=== PATIENT | female | born 1960 | race Caucasian/White ===

== ENCOUNTER → 2020-03-09 11:37 | Outpatient (CLI) | payer OTHER, MEDICAID, SELFPAY ==
--- NOTE | ~2020-03-09 | DEXA_ITS ---
Bone Density Report Name: Sheila Reinoso Age: 59 Sex: Female Ethnicity: White Date of : 1960 Indication: postmenopausal; screening for osteoporosis; height loss; Referring Provider: SEKOU, STERLING Neumann Study: Bone densitometry was performed. Exam Date: March 09, 2020 Accession number: [id number] Bone Density: Region BMD T-score Z-score Classification AP Spine (L1-L4) 1.176 1.2 2.6 Normal Femoral Neck (Left) 0.820 -0.3 1.0 Normal Total Hip (Left) 0.932 -0.1 0.8 Normal Femoral Neck (Right) 0.849 0.0 1.3 Normal Total Hip (Right) 0.937 0.0 0.9 Normal Total Hip Mean 0.935 -0.1 0.9 Normal World Health Organization criteria for BMD impression classify patients as: Normal (T-score at or above -1.0), Osteopenia (T-score between -1.0 and -2.5), or Osteoporosis (T-score at or below -2.5). 10-year Fracture Risk: FRAX not reported because: All T-scores for Spine Total, Hip Total, Femoral Neck at or above -1.0 Clinical Information Provided by Patient: Patient maximum height was 64 Menopause Age: 37 No regular weight bearing exercise Drinks caffeinated beverages Onset of menses at age 14 Number of children 2 Impression: The patient has normal bone mass. Discussion: BONE DENSITY IS ABOVE THE MINIMUM DESIRABLE LEVEL AT ALL SKELETAL SITES TESTED. This patient?s bone mineral density is above the minimum desirable level (T-score -1.0 or better) at all sites measured. The patient should follow a healthful lifestyle (good nutrition with adequate calcium and vitamin D, and appropriate weight-bearing exercise). Follow-Up: Consider repeating this study in 5 years or sooner if there is some new clinical indication. Reported by: JOSHUA on 03/09/2020 12:07:00 PM. Reviewed, dictated and finalized at location [facility]
== END ==
PROVIDERS: PCP Internal Medicine; Visit Provider Internal Medicine
DX: N95.9 Unspecified menopausal and perimenopausal disorder (principal); Z78.0 Asymptomatic menopausal state
CPT/HCPCS: 77080

== ENCOUNTER 2020-09-21 15:04 | Outpatient (CLI) | payer OTHER, MEDICAID, SELFPAY ==
--- NOTE | ~2020-09-21 | XR_ITS ---
XR chest 2V DATE: 09/21/2020 15:35 INDICATION: Covid pneumonia TECHNIQUE: PA and lateral views COMPARISON: None FINDINGS: Normal heart size. No hilar or mediastinal enlargement. There is patchy interstitial prominence in the mid and lower lung zones which may be due to interstit ial pneumonitis or fibrotic change. Comparison with prior chest regress would be helpful, if availabl e. No pleural effusion, pulmonary vascular congestion or pneumothorax. IMPRESSION: Patchy interstitial prominence in the mid and lower lung zones which may be due to inters titial pneumonitis or fibrotic change Reviewed, dictated and finalized at location A. [place] [facility] IMPRESSION: Patchy interstitial prominence in the mid and lower lung zones whic h may be due to interstitial pneumonitis or fibrotic change
== END 2020-09-21 15:05 | disposition home or self-care (01) ==
LOC: ANHIMG 15:19
PROVIDERS: PCP Internal Medicine; Visit Provider Internal Medicine
DX: J18.9 Pneumonia, unspecified organism (principal); R91.8 Other nonspecific abnormal finding of lung field
CPT/HCPCS: 71046

== ENCOUNTER 2021-08-06 14:37 | Outpatient (CLI) | payer OTHER, MEDICAID, SELFPAY ==
--- NOTE | ~2021-08-06 | XR_ITS ---
EXAMINATION: XR lumbar spine 2-3V DATE: 08/06/2021 14:54 INDICATION: Low back pain TECHNIQUE: Anteroposterior and lateral views of the lumbar spine, and cone-down lateral view of the l umbosacral junction were obtained. COMPARISON: None. FINDINGS: There is grade 2 anterolisthesis of L5 on S1. No fracture is identified. There is moderate loss of intervertebral disc space height at L5-S1 and at T12-L1. The vertebral body heights are maint ained. Small degenerative osteophytes project from the anterior endplates of multiple vertebral marisel s. Calcified atherosclerosis is noted. IMPRESSION: 1. Grade 2 anterolisthesis of L5 on S1 and moderate lumbar spondylosis without acute findings. Reviewed, dictated and finalized at location F. F [facility]RO[employer] CLERK
== END 2021-08-06 14:38 | disposition home or self-care (01) ==
LOC: ANHIMG 14:44
PROVIDERS: PCP Internal Medicine; Visit Provider Internal Medicine
DX: M47.896 Other spondylosis, lumbar region (principal)
CPT/HCPCS: 72100

== ENCOUNTER 2022-02-14 09:03 | Outpatient (CLI) | payer OTHER, SELFPAY | END 2022-02-14 09:04 | disposition home or self-care (01) | LOC: ANHAUDIO 09:06 | PROVIDERS: PCP Family Medicine | DX: H90.3 Sensorineural hearing loss, bilateral (principal) | CPT/HCPCS: 92557; 92567 ==

== ENCOUNTER 2022-07-24 14:19 | Emergency (ER) | payer OTHER, SELFPAY ==
--- NOTE | 2022-07-24 14:24 | PC.NURSE ---
PT WALKED OUT AND SAID SHE IS GOING TO [facility]. THE WAIT ISN'T LONG AMBULATORY FROM THE ED WITH A STEADY GAIT
== END 2022-07-24 17:02 | disposition left against medical advice (07) ==
DX: Z53.21 Procedure and treatment not carried out due to patient leaving prior to being seen by health care provider (principal)
CPT/HCPCS: 99199

== ENCOUNTER 2025-01-07 09:21 | Outpatient (CLI) | payer MEDICARE, MEDICAID, SELFPAY ==
--- NOTE | ~2025-01-07 | MR_ITS ---
MRI of the cervical spine Clinical History: Cervical disc disease Technique: Axial T2-weighted and gradient images, and sagittal T1-weighted, T2-weighted, and STIR brandon ges were acquired. Findings: No fracture seen. There is 3 mm retrolisthesis of C4-C5, with minimal reversal of the guero l cervical lordosis. No suspicious bone marrow signal abnormality seen. At C2-C3, there is minimal disc bulge. There is left facet arthropathy with left neural foraminal michael rowing. There is mild canal stenosis without hamilton cord compression. Right neural foramen intact. At C3-C4, there is disc osteophyte complex with severe canal stenosis and associated cord compression . There is probable bilateral neural foraminal narrowing, right worse than left with bilateral facet arthropathy. C4-C5, there is disc osteophyte complex with moderate canal stenosis and mild cord compression. There is bilateral neural foraminal narrowing. At C5-C6, there is disc osteophyte compresses with moderate to severe canal stenosis and cord aggie noe. There is severe bilateral neural foraminal narrowing. At C6-C7, there is disc osteophyte complex with moderate to severe canal stenosis and cord compressio n. There is preservation neural foramina. No abnormal signal seen in the spinal cord. Paravertebral soft tissues are unremarkable. Impression: Severe degenerative spondylosis, with multilevel significant canal stenosis and cord compression, fro m C3 through C7. Additional multilevel neural foraminal narrowing. Reviewed, dictated and finalized at location M. Impression: Severe degenerative spondylosis, with multilevel significant canal stenosis and cord compression, from C3 through C7. Additional multilevel neural foraminal n arrowing.
== END 2025-01-07 09:22 | disposition home or self-care (01) ==
PROVIDERS: PCP Family Medicine; Visit Provider Family Medicine
DX: M50.90 Cervical disc disorder, unspecified, unspecified cervical region (principal); M47.892 Other spondylosis, cervical region
CPT/HCPCS: 72141

== ENCOUNTER 2025-02-16 09:59 | Outpatient (CLI) | payer MEDICARE, MEDICAID, SELFPAY ==
--- NOTE | ~2025-02-16 | MM_ITS ---
EXAMINATION: MM screening cha BI w horacio HISTORY: Screening TECHNIQUE: Craniocaudal and mediolateral oblique 3-D tomosynthesis images were obtained and synthetic 2-D images were generated. CAD analysis was submitted and interpreted. COMPARISON: Comparison to multiple prior studies sequentially, with oldest reviewed study dated 06/27. BREAST PARENCHYMAL COMPOSITION: The breasts are almost entirely fatty. FINDINGS: There is no evidence of suspicious mass, calcification, or architectural distortion to sug gest malignancy in either breast. IMPRESSION: 1. No mammographic evidence of malignancy. 2. Recommend routine screening mammography in one year. BI-RADS Category 1: Negative Reviewed, dictated and finalized at location B.
--- OUTSIDE RECORDS SUMMARY | 2025-02-16 10:03 | XMS_ITS | Patient Health Record ---
Author Organization [facility] [employer] Address [address] [place] [address] Care Team Providers Care Fisher Diver Net Name Role Phone Janis Han Unavailable [phone] Reason For Referral No Information Medications Medication SIG (Take, Route, Frequency, Duration) Notes Start Date End Date Status Ergocalciferol 1.25 MG (87393 UT) Oral 04/16/2021 Active amLODIPine Besylate 5 MG Oral 04/16/2021 Active PARoxetine HCl 20 MG Oral 04/16/2021 Active Ibuprofen 800 MG Oral 04/16/2021 Ac tive Omeprazole 40 MG Oral 04/16/2021 Ac tive Losartan Potassium 100 MG Oral 04/16/2021 Active ARIPiprazole 10 MG Oral 04/16/2021 Active LORazepam 0.5 MG Oral 04/16/2021 Ac tive Spironolactone 100 MG Oral 04/16/2021 Active Melatonin 3 MG Oral 04/16/2021 Acti ve buPROPion HCl ER (XL) 150 MG Oral 04/16/2021 Active Immunizations Vaccine Route Administration Date Status Comme nts Pfizer Biontech Covid-19 Vac cine 2nd dose Unknown 04/11/2021 Administered Plan Of Treatment No Information Insurance Providers Payer Name Payer Address Payer Phone Subscriber Number Group Number Insured Name Patient Relationship to Insured Coverage Start Date Coverage End Date [facility] [address] [place] [id number] MIHAELA ALDANA Self - patient is the insured [place] [address] [address] [place] [address] [id number] MIHAELA ALDANA Self - patient is the insured
--- OUTSIDE RECORDS SUMMARY | 2025-02-16 10:03 | XMS_ITS | Clinical Summary ---
Author Organization [facility] Address [address] [facility] [place] [address] Care Team Providers Care Soda Drier Feeder Name Role Phone Unavailable Primary Care Provider Unavailabl e Source Comments [facility],non-owned Affiliates and Associated Physician Practices is amultiple site organization consisting of ambulatory clinics and hospital sitesin [place], [place], [place] and [place]. This disclosure is being madepursuant to the Care Everywhere program and may not contain all information available regarding this patient. Last updated 18[facility] Allergies No known active allergies Medications * Be aware that medications may not be up to date on this document. Alwaysverify current medications with the patient. losartan (COZAAR) 100 MG tablet Take 100 mg by mouth once daily Active omeprazole (PRILOSEC) 40 MG capsule Take 40 mg by mouth daily before breakfast Active PARoxetine (PAXIL) 40 MG tablet Take 40 mg by mouth once daily Active Social History Tobacco Use Types Packs/Day Years Used Date Smoking Tobacco: Never Smokeless Tobacco: Never Alcohol Use Standard Drinks/Week Comments No 0 (1 standard drink = 0.6 oz pur e alcohol) Comments No Sex and Gender Information Value Date Recorded Sex Assigned at Not on file Legal Sex Female 11:04 AM CDT Gender Identity Not on file Sexual Orientation Not on file Last Filed Vital Signs Vital Sign Reading Time Taken Comments Blood Pressure 189/85 11/28/2017 10:10 AM CDT Pulse 65 11/28/2017 10:10 AM CDT Temperature 35.9 C (96.6 F) 11/28/2017 9:30 AM CDT Respiratory Rate 17 11/28/2017 10:10 AM CDT Oxygen Saturation 96% 11/28/2017 10:10 AM CDT Inhaled Oxygen Concentration - - Weight 87.1 kg (192 lb) 11/28/2017 7:51 AM CDT Height 162.6 cm (5' 4) 11/26/2017 1:34 PM CDT Body Mass Index 32.96 11/26/2017 1:34 PM CDT Plan of Treatment Health Maintenance Due Date Last Done Comments COLOGUARD (AGES 45-75) - COL ON CA SCREENING 1960 COLON MONITORING 1960 COLONOSCOPY - COLON CA SCREENING 1960 CT COLONOGRAPHY - COLON CA SCREENING 1960 Colorectal Cancer Screening 1960 FIT - COLON CA SCREENING 1960 FLEX SIG - COLON CA SCREENING 1960 LIPID TESTING 1960 MAMMOGRAM 1960 HIV SCREENING 1975 HEPATITIS C SCREENING 06/08/1978 DTAP/TDAP/TD VACCINES (1 - Tdap) 1979 PNEUMOCOCCAL VACCINE 50+ (1 of 1 - PCV) 2010 ZOSTER VACCINE (1 of 2) 2010 COVID-19 VACCINE (1 - 2023-2 5 season) 2024 DEPRESSION SCREENING 07/28/2024 INFLUENZA VACCINE (#1) 2025 Respiratory Syncytial Virus (RSV) Vaccine Pt: or over 60 yrs (1 - 1-dose 75+ series) 2035 HEPATITIS B VACCINE Aged Out No longe r eligible based on patient's age to complete this topic HIB VACCINE Aged Out No longer eligi ble based on patient's age to complete this topic HPV VACCINE Aged Out No longer eligi ble based on patient's age to complete this topic MENINGOCOCCAL (Group B) VACC INE SHARED DECISION-MAKING Aged Out No longer eligibl e based on patient's age to complete this topic MENINGOCOCCAL GROUPS A/C/Y/W VACCINE Aged Out No longer eligible b ased on patient's age to complete this topic Insurance [employer]
--- OUTSIDE RECORDS SUMMARY | 2025-02-16 10:03 | XMS_ITS | Clinical Summary ---
Author Organization [facility] Address [address] [place] [address] Phone Care Team Providers Care Director Of Oncology Name Role Phone Matthew Steele MD Primary Care Provider [phone] Allergies Active Allergy Reactions Criticality Noted Date Comments Albuterol Anxiety 05/15/2021 Medications LORazepam (ATIVAN) 0.5 MG Tablet 0 03/26/2021 Active ARIPiprazole (ABILIFY) 5 MG Tablet Take 5 mg by mouth nightly. Active buPROPion SR (WELLBUTRIN SR) 150 MG TABLET SR 12 HR Take 150 mg by mouth every morning. Active ibuprofen (MOTRIN) 800 MG Tablet Take 800 mg by mouth 3 times daily. Active losartan (COZAAR) 100 MG Tablet Take 100 mg by mouth 3 times daily. Active omeprazole (PriLOSEC) 40 MG CAPSULE DELAYED RELEASE Take 40 mg by mouth daily. Active PARoxetine (PAXIL) 40 MG Tablet Take 40 mg by mouth daily. Active spironolactone (ALDACTONE) 100 MG Tablet Take 100 mg by mouth daily. Active Family History Medical History Relation Name Comments Hypertension Father Hypertension Mother Relation Name Status Comments Father Mother Social History Tobacco Use Types Packs/Day Years Used Date Smoking Tobacco: Never Smokeless Tobacco: Never Alcohol Use Standard Drinks/Week Comments Yes 0 (1 standard drink = 0.6 oz pur e alcohol) occasional Comments Unknown Sex and Gender Information Value Date Recorded Sex Assigned at Not on file Legal Sex Female 11:58 AM ROOFING CONTRACTOR Gender Identity Not on file Sexual Orientation Not on file Last Filed Vital Signs Vital Sign Reading Time Taken Comments Blood Pressure 132/90 07/02/2021 10:14 AM ROOFING CONTRACTOR Pulse 80 07/02/2021 10:14 AM ROOFING CONTRACTOR Temperature 36.3 C (97.4 F) 07/02/2021 10:14 AM ROOFING CONTRACTOR Respiratory Rate 24 07/02/2021 10:12 AM ROOFING CONTRACTOR Oxygen Saturation 96% 07/02/2021 10:12 AM ROOFING CONTRACTOR Inhaled Oxygen Concentration - - Weight 96.7 kg (213 lb 3.2 oz) 07/02/2021 10:12 AM ROOFING CONTRACTOR Height 164.1 cm (5' 4.6) 07/02/2021 10:14 AM CS T Body Mass Index 35.92 07/02/2021 10:12 AM ROOFING CONTRACTOR Plan of Treatment Health Maintenance Due Date Last Done Comments Hepatitis C Virus (HCV) Screening 1960 TdaP Immunization 1960 Pap Smear 1981 Cervical Cancer Screening (CCS) 1990 HPV/Cotest 1990 Cologuard 2005 Colonoscopy 2005 Colorectal Cancer Screening 2005 Immunochemical Fecal Occult Blood 2005 Pneumococcal Immunization (5 0+ years) (1 of 1 - PCV) 2010 Zoster Immunization (1 of 2) 2010 SARS-COV-2 Immunization ( season) 2024 04/13/2021, 04/11/2021 Influenza Immunization (#1) 2025 Respiratory Syncytial Virus (RSV) Immunization (Adult) (1 - 1-dose 75+ series) 2035 Hepatitis B Immunization Aged Out No longer eligible based on patient's age to complete this topic Human Papillomavirus (HPV) Immunization Aged Out No longer eligible b ased on patient's age to complete this topic Meningococcal Immunization (ACWY) Aged Out No longer eligible b ased on patient's age to complete this topic Rotavirus Immunization Aged Out No lo nger eligible based on patient's age to complete this topic Insurance [facility] Care Teams Director Of Oncology Relationship Specialty Start Date End Date Matthew Steele MD PCP - General Internal Medicine 04/27/21
--- OUTSIDE RECORDS SUMMARY | 2025-02-16 10:04 | XMS_ITS | Referral Summary ---
Author Organization [facility] Address [address] [place] [address] Care Team Providers [facility] Specialist Name Role Phone Kd Cooper MD Primary Care Provider Encounters Date Type Department Care Team Description 01/17/2025 Telephone [facility] Medical [facility] Primary Care at [address] [phone] Kd Cooper MD Symptom Based Call 12/30/2024 1:15 PM CDT Office Visit [facility] Primary Care at [address] [phone] Kd Cooper MD Alopecia (capitis) totalis (Primary Dx) 12/22/2024 ACO Clinical Pharmacist [address] [address] Hailey Lan neda 12/22/2024 Orders Only [facility] Primary Care at [address] [phone] Kd Cooper MD Cervical disc disease 12/14/2024 Orders Only [facility] Primary Care at [address] [phone] Kd Cooper MD 12/14/2024 Telephone [facility] Primary Care at [address] [phone] Kd Cooper MD Symptom Based Call 12/08/2024 ACO Clinical Pharmacist [address] [address] Hailey Lan neda 12/03/2024 Telephone [facility] Primary Care at [address] [phone] Kd Cooper MD Med Management 12/03/2024 ACO Clinical Pharmacist [address] [address] Hailey Lan [facility] 12/02/2024 8:00 AM CDT Office Visit [facility] Primary Care at [address] [phone] Brionna Figueroa NP Seborrheic dermatitis of scalp (Primary Dx); Left upper arm pain 11/23/2024 Results Follow-Up [facility] Primary Care at [address] [phone] Kd Cooper MD Hepatitis B core antibody, total Blood, Hepatitis B Surface Antigen Blood, Hepatitis B surface antibody (immune status) Blood, Additional followed-up results: 7 11/22/2024 3:21 PM CDT - 11/22/2024 11:59 PM CDT Hospital Encounter [address] [address] Screening for hepatitis B virus declined; Hypertension associated with diabetes (HCC) Discharge Disposition: Discharge to home or self care 11/22/2024 3:30 PM CDT Lab [facility] Outpatient Lab at [address] [phone] Hyperglycemia (Primary Dx); Hyperlipidemia 11/22/2024 3:15 PM CDT Office Visit [facility] Primary Care at [address] [phone] Kd Cooper MD Encounter for annual wellness visit (AWV) in Medicare patient (Primary Dx); Moderate episode of recurrent major depressive disorder (HCC); Class 2 severe obesity due to excess calories with serious comorbidity and body mass index (BMI) of 38.0 to 38.9 in adult (HCC); Hypertension associated with diabetes (HCC); Mixed hyperlipidemia; Vitamin D deficiency; Hiatal hernia with GERD; Breast cancer screening by mammogram; Cervical cancer screening; Screening for diabetic retinopathy; Screening for hepatitis B virus declined; Cervical disc disease 11/19/2024 [place] [address] Hoa Najera, power screwdriver operator from Last 3 Months Allergies Active Allergy Reactions Criticality Noted Date Comments Albuterol Swollen tongue High 10/19/2020 Medications losartan (COZAAR) 25 mg tablet Take 1 tablet (25 mg total) by mouth daily Active tiotropium bromide (SPIRIVA RESPIMAT) 2.5 mcg/actuation inhaler Inhale 2 puffs daily 4 g 07/16/20 23 Active omeprazole (PriLOSEC) 40 mg capsule Take 1 tablet by mouth daily Active furosemide (LASIX) 20 mg tablet TAKE 1 TABLET BY MOUTH EVERY DAY 10 tablet 01/30/20 24 Active rosuvastatin (CRESTOR) 5 mg tabletIndicati ons:Mixed hyperlipidemia ,Controlled type 2 diabetes mellitus without complication, without long-term current use of insulin (HCC) Take 1 tablet (5 mg total) by mouth daily 100 tablet 3 12/09/[address] (CYMBALTA) 60 mg capsule TAKE 1 CAPSULE BY MOUTH EVERY DAY 100 capsule 1 12/12/19 25 Active ARIPiprazole (ABILIFY) 2 mg tabletIndicati ons:Moderate episode of recurrent major depressive disorder (HCC) TAKE 1 TABLET BY MOUTH EVERY DAY 100 tablet 1 12/15/19 25 Active amLODIPine (NORVASC) 5 mg tablet TAKE 1 TABLET BY MOUTH EVERY DAY 100 tablet 1 12/15/19 25 Active buPROPion SR (WELLBUTRIN SR) 200 mg 12 hr tablet TAKE 1 TABLET BY MOUTH TWICE A DAY 200 tablet 1 12/15/19 25 Active metFORMIN XR (GLUCOPHAGE XR) 500 mg 24 hr tablet TAKE 1 TABLET BY MOUTH EVERY DAY WITH BREAKFAST 90 tablet 12/16/19 25 Active minoxidiL (Rogaine) 2 % external solution Apply topically 2 (two) times a day 60 mL 12/31/19 25 026 Active ibuprofen (ADVIL,MOTRIN) 800 mg tablet TAKE 1 TABLET BY MOUTH THREE TIMES A DAY 90 tablet 01/19/20 25 Active fluocinolone (DERMA-SMOOTH/ FS) 0.01 % oil Apply topically 2 (two) times a day 2-3 fingertip's worth to scalp, twice daily, for 2 weeks 120 mL 1 01/20/20 25 Active ketoconazole (NIZORAL) 2 % shampoo Shampoo daily, leave on for 5-10 minutes, then rinse. 120 mL 2 01/20/20 25 026 Active semaglutide (Ozempic) 1 mg/dose (4 mg/3 mL) pen injector injectionIndic ations:Hyperte nsion associated with diabetes (HCC) INJECT 1 MG UNDER THE SKIN EVERY 7 DAYS 3 mL 1 02/16/20 25 Active semaglutide (Ozempic) 1 mg/dose (4 mg/3 mL) pen injector injectionIndic ations:Hyperte nsion associated with diabetes (HCC) INJECT 1 MG UNDER THE SKIN EVERY 7 DAYS 3 mL 1 12/16/19 25 025 Discontinued ibuprofen (ADVIL,MOTRIN) 800 mg tablet TAKE 1 TABLET BY MOUTH THREE TIMES A DAY 90 tablet 01/08/20 25 025 Discontinued Active Problems Problem Noted Date Diagnosed Date Seborrheic dermatitis of scalp 12/02/2024 Left upper arm pain 12/02/2024 Benign skin lesion of thigh 04/19/2024 Assessment & Plan (04/19/2024 1:19 PM CDT): Frozen off x 03/31. Pt notes that this has improved. In office lesion still present, likely needs Derm. Referral placed. Controlled type 2 diabetes m dominik without complication, without long-term current use of insulin 11/16/2023 Assessment & Plan (04/19/2024 1:21 PM CDT): A1c 8.0% x 10/2023. Updated labs ordered and will see if additional medication needed. Patient was inquiring about Ozempic. Discussed the medication but will see labs first. Mild neurocognitive disorder 09/26/2022 Overview (09/26/2022): still having some problems with short-term memory, but mood and such have been fine Hypertension associated with diabetes 07/09/2022 Assessment & Plan (04/19/2024 1:21 PM CDT): BP fine in office, continuing Amlodipine Vitamin D deficiency 07/09/2022 Sensorineural hearing loss (SNHL) of both ears 0 01/15/2022 Moderate episode of recurrent major depressive d isorder 09/27/2021 EMA (generalized anxiety disorder) 09/27/2021 Class 2 severe obesity due t o excess calories with serious comorbidity and body mass index (BMI) of 38.0 to 38.9 in adult 01/23/2021 Assessment & Plan (11/13/2023 1:30 PM CDT): BMI Follow-up includes: nutrition counseling, exercise counseling, and education provided. Sleep disorder 01/23/2021 Non-smoker 10/19/2020 Hiatal hernia with GERD 06/29/2020 Hyperlipidemia 01/12/2020 Resolved Problems Problem Noted Date Diagnosed Date Resolved Date Bee sting 07/09/2022 12/02/2024 Chronic depression 07/09/2022 5 Establishing care with penny mora, encounter for 06/15/2022 12/02/2024 Assessment & Plan (06/15/2022 12:54 PM ALARM SECURITY OR SURVEILLANCE MONITOR): A(n) initial visit to establish care has been performed today. Sheila Reinoso is not up to date on screening tests. She is in need of hepatitis C screening, Colon cancer screening and Cervical cancer screening. She is not up to date on needed preventative vaccinations; She is in need of Tdap/Td, Zoster and Covid-19 (booster). Urinalysis showed possible urinary tract infection. In some patients, an untreated urinary tract infection can cause mental status changes. I do not think that is likely but I will go ahead and send it for culture. Blood pressure is acceptable for now will continue the current regimen. Strong family history of parkinsonism. Also long haul COVID-19 complicating matters. Neurologic consultation is desired. Plan to send to [facility] Mood is changed a bit, will increase bupropion to 200 mg twice daily Will plan to do former mental status exam at follow-up in 3 weeks Labs as ordered Dizziness and giddiness 01/15/202202/2025 Assessment & Plan (01/15/2022 10:44 AM CDT): Hearing test - [place] Suspect Pulmonary contribution to shortness of breath and resulting presyncopal complaints. Referral placed to Pulmonary [id number] condition 09/27/202102/2025 Muscle weakness 01/23/2021 12/02/2024 History of COVID-19 01/23/2021 12/03/19 25 Daytime somnolence 11/08/2020 Rheumatoid arthritis 10/19/2020 022 Shortness of breath 10/19/2020 12/03/19 Chronic cough 10/19/2020 08/29/2021 Anxiety 10/19/2020 12/02/2024 Acute respiratory disease du e to 2019 novel coronavirus 10/16/2020 09/27/2021 Acute respiratory failure wi th hypoxia (CMS/HCC) 10/16/2020 09/27/2021 Bacteremia due to coagulase- negative Staphylococcus 10/16/2020 12/02/2024 Pneumonia due to 2019-nCoV 10/16/2020 0 12/02/2024 Hyperglycemia 01/12/2020 12/02/2024 Immunizations Immunization Administration Dates Next Due Influenza, Unspecified 07/25/2022(Deferr ed: Patient Refused),07/09/2022(Deferred: Patient Refused),06/13/2022(Deferred: Patient Refused),08/29/2021(Deferred: Patient Refused),12/26/2020,07/28/2020(Deferred: Patient Refused) Social History Tobacco Use Types Packs/Day Years Used Date Smoking Tobacco: Never Smokeless Tobacco: Never Tobacco Cessation:Counseling Given: Not Answered AUDIT-C Answer Date Recorded Q1: How often do you have a drink containing alc ohol? Monthly or less 06/07/2021 Q2: How many drinks containi ng alcohol do you have on a typical day when you are drinking? 1 or 2 06/07/2021 Q3: How often do you have si x or more drinks on one occasion? Never 06/07/2021 PHQ-2 Answer Date Recorded PHQ-2 Total Score (If total score is 3 or more points, staff should administer the PHQ-9) 6 12/30/2024 PHQ-9 Answer Date Recorded PHQ-9 Total Score 15 12/30/2024 Personal Safety Answer Date Recorded Have you ever been in or are you currently in a harmful physical or emotional relationship or is someone making you feel afraid or unsafe? Denies 07/15/2023 Comments No Sex and Gender Information Value Date Recorded Sex Assigned at Not on file Legal Sex Female 5:21 AM ALARM SECURITY OR SURVEILLANCE MONITOR Gender Identity Not on file Sexual Orientation Not on file Last Filed Vital Signs Vital Sign Reading Time Taken Comments Blood Pressure 154/80 12/30/2024 1:14 PM CDT Pulse 79 12/30/2024 1:14 PM CDT Temperature 36.7 C (98.1 F) 12/30/2024 1:14 PM CDT Respiratory Rate 18 12/30/2024 1:14 PM CDT Oxygen Saturation 94% 12/30/2024 1:14 PM CDT Inhaled Oxygen Concentration - - Weight 95.3 kg (210 lb) 12/30/2024 1:14 PM CDT Height 162.6 cm (5' 4) 12/30/2024 1:14 PM CDT Body Mass Index 36.05 12/30/2024 1:14 PM CDT Plan of Treatment Not on file Procedures Procedure Name Priority Date/Time Associated Diagnosis Comments EGFR Routine 11/22/2024 3:21 PM CDT Hypertension associated with diabetes (HCC) DIFFERENTIAL AUTO Routine 11/22/2024 3:2 1 PM CDT Hypertension associated with diabetes (HCC) HEMOGLOBIN A1C Routine 11/22/2024 3:21 PM CDT Hypertension associated with diabetes (HCC) THYROID FUNCTION CASCADE Routine 11/22/2024 3:21 PM CDT Hypertension associated with diabetes (HCC) COMPREHENSIVE METABOLIC PANEL Routine 11/22/2024 3:21 PM CDT Hypertension associated with diabetes (HCC) CBC WITH AUTO DIFFERENTIAL Routine 11/22/2024 3:21 PM CDT Hypertension associated with diabetes (HCC) HEPATITIS B SURFACE ANTIBODY (IMMUNE STATUS) Routine 11/22/2024 3:21 PM CDT Screening for hepatitis B virus declined HEPATITIS B SURFACE ANTIGEN Routine 11/22/2024 3:21 PM CDT Screening for hepatitis B virus declined HEPATITIS B CORE ANTIBODY, TOTAL Routine 11/22/2024 3:21 PM CDT Screening for hepatitis B virus declined ALBUMIN CREATININE RATIO, URINE Routine 11/22/2024 12:51 PM CDT Hypertension associated with diabetes (HCC) LIPID PANEL Routine 04/19/2024 4:00 PM CDT Controlled type 2 diabetes mellitus without complication, without long-term current use of insulin (HCC) Hypertension associated with diabetes (HCC) HEPATITIS C ANTIBODY Routine 07/25/2022 12:04 PM ALARM SECURITY OR SURVEILLANCE MONITOR Encounter for hepatitis C screening test for low risk patient HM PAP SMEAR WITH HPV Routine 10/30/2021 SCREENING MAMMOGRAM BILATERAL W FEDE Schedule Routine, Read Routine (OP Routine) 10/17/2021 Breast cancer screening by mammogram from Last 3 Months or Most Recently Relevant to Health Maintenance Results * eGFR (11/22/2024 3:21 PM CDT) eGFR 69 >=60 mL/min/1. 73 m2 Comment: Interpretive Data Reference Interval Normal >/= 90 mL/min/1.73m2 Mildly decreased* 60 - 89 mL/min/1.73m2 Mildly to moderately decreased 45 - 59 mL/min/1.73m2 Moderately to severely decreased 30 - 44 mL/min/1.73m2 Severely decreased 15 - 29 mL/min/1.73m2 Kidney Failure < 15 mL/min/1.73m2 *Relative to young adult level Estimated glomerular filtration rate is determined by the 2020 CKD-EPI equation recommended by the National Kidney Foundation (A Unifying Approach to GFR Estimation: Recommendations of the NKF-ASK Task Force on Reassessing the Inclusion of Race in Diagnosing Kidney Disease, JASN 2020). The CKD-EPI equation should not be used for patients with unstable renal function and has not been validated in children and those over 70. Current interpretive data was last reviewed 2021. Blood 11/22/2024 3:21 PM CDT 11/22/2024 9:47 PM CDT us Kd Cooper MD LAB BLOOD ORDERABLES Final Result MIKO [id number] Department [place] [address] * Differential, auto (11/22/2024 3:21 PM CDT) Neutrophil abs 4.41 1.50 - 6.50 K/cumm Imm gran abs 0.01 0.00 - 0.10 K/cumm [facility] Lymphocyte abs 2.87 0.80 - 3.30 K/cumm [facility] Monocyte abs 0.50 0.20 - 0.80 K/cumm [facility] Eosinophil abs 0.19 0.00 - 0.50 K[facility]cumm [facility] Basophil abs 0.06 0.00 - 0.10 K/cumm [facility] Neutrophil pct 54.9 % MIKO Comment: Interpretive Data Percent cell count reference ranges are not reported, since discordance with absolute values may lead to misinterpretation of CBC data. Current Interpretive Data was last revised on 2017. Imm gran pct 0.1 % MIKO Comment: Interpretive Data Percent cell count reference ranges are not reported, since discordance with absolute values may lead to misinterpretation of CBC data. Current Interpretive Data was last revised on 2017. Lymphocyte pct 35.7 % [facility] Comment: Interpretive Data Percent cell count reference ranges are not reported, since discordance with absolute values may lead to misinterpretation of CBC data. Current Interpretive Data was last revised on 2017. Monocyte pct 6.2 % [facility] Comment: Interpretive Data Percent cell count reference ranges are not reported, since discordance with absolute values may lead to misinterpretation of CBC data. Current Interpretive Data was last revised on 2017. Eosinophil pct 2.4 % [facility] Comment: Interpretive Data Percent cell count reference ranges are not reported, since discordance with absolute values may lead to misinterpretation of CBC data. Current Interpretive Data was last revised on 2017. Basophil pct 0.7 % [facility] Comment: Interpretive Data Percent cell count reference ranges are not reported, since discordance with absolute values may lead to misinterpretation of CBC data. Current Interpretive Data was last revised on 2017. Blood 11/22/2024 3:21 PM CDT 11/22/2024 9:45 PM CDT Kd Cooper MD LAB BLOOD ORDERABLES Final Result Performing Organization Address [facility] de Phone Number MIKO GUTIERREZ [id number] [address] [place] [address] * Thyroid Function Ririe (11/22/2024 3:21 PM CDT) Pathologist [facility] TSH 0.85 0.30 - 4.20 mcIUnit/mL Blood 11/22/2024 3:21 PM CDT 11/22/2024 9:45 PM CDT Kd Cooper MD LAB BLOOD ORDERABLES Final Result Performing Organization Address [facility] Co de Phone Number MIKO [phone] [address] [place] [address] * (ABNORMAL) CBC with auto differential (11/22/2024 3:21 PM CDT) Pathologist [facility] WBC 8.04 3.80 - 9.90 K/cumm Hgb 12.3 11.9 - 15.5 g/dL [facility] Hct 39.3 35.6 - 45.5 % [facility] Plt 274 150 - 400 K/cumm [facility] MPV 9.2 9.1 - 12.3 fL [facility] RBC 4.11 3.90 - 5.20 M/cumm [facility] MCV 95.6 81.3 - 96.4 fL [facility] MCH 29.9 27.1 - 33.3 pg [facility] MCHC 31.3(L) 32.3 - 35.7 g/dL [facility] CH RDW CV 13.0 11.1 - 14.9 % [facility] RDW SD 45.6 35.7 - 48.1 fL [facility] NRBC abs 0.00 0.00 - 0.01 K/cumm [facility] Blood 11/22/2024 3:21 PM CDT 11/22/2024 9:45 PM CDT Kd Cooper MD LAB BLOOD ORDERABLES Final Result Performing Organization Address [facility] Co de Phone Number MIKO [phone] [address] Department of [place] [place], [place] [id number] * Hepatitis B core antibody, total Blood (11/22/2024 3:21 PM CDT) Hep B core IgG/IgM Nonreactive Nonreactive Comment:Testing performed by : [facility], [address], [place]., [address] Blood 11/22/2024 3:21 PM CDT 11/23/2024 10:30 AM CDT Kd Cooper MD LAB MICROBIOLOGY - GENERAL ORDERABLES Final Result Performing Organization Address [facility] Co de Phone Number BENITAJARED [phone] [address] [place] [address] * Hepatitis B surface antibody (immune status) Blood (11/22/2024 3:21 PM CDT) HBsAb (immune status) Nonreactive Comment: Interpretive Data Nonreactive: This result is consistent with a lack of immunity to Hepatitis B Virus when used in the setting of routine screening. Equivocal: The immune status of the individual should be further assessed, if appropriate, after consideration of clinical status, risk factors, and additional diagnostic information. Reactive: This result is consistent with immunity to Hepatitis B Virus when used in the setting of routine screening. Current interpretive data was last revised on 19. Blood 11/22/2024 3:21 PM CDT 11/22/2024 9:45 PM CDT Kd Cooper MD LAB MICROBIOLOGY - GENERAL ORDERABLES Final Result Performing Organization Address [facility] de Phone Number [facility] [address] [address] [place] [address] * Hepatitis B Surface Antigen Blood (11/22/2024 3:21 PM CDT) HepBsAg Nonreactive Nonreactive Blood 11/22/2024 3:21 PM CDT 11/22/2024 9:45 PM CDT Result [facility] Kd Cooper MD LAB MICROBIOLOGY - GENERAL ORDERABLES Final Result Performing Organization Address [facility] Phone Number [facility] [address] [address] [facility] [place] [address] * (ABNORMAL) Hemoglobin A1c (11/22/2024 3:21 PM CDT) Hgb A1C 6.3(H) 4.0 - 5.6 % Estimated Average Glucose 134 mg/dL MIKO Comment: The ADA recommends reporting an estimated Average Glucose (eAG) with all Hemoglobin A1c results using the equation derived from a study of 507 normal and diabetic adults. Minority populations were underrepresented and children were not included. (Diabetes Care 31:2678-7932, 2008). The eAG is not equivalent to a fasting glucose. Blood 11/22/2024 3:21 PM CDT 11/22/2024 9:45 PM CDT Kd Cooper MD LAB BLOOD ORDERABLES Final Result Performing Organization Address [facility] Co de Phone Number MIKO GUTIERREZ [phone] [address] Department [place] [address] * (ABNORMAL) Comprehensive metabolic panel (11/22/2024 3:21 PM CDT) Sodium 142 135 - 145 mmol/L Potassium, pl 4.8 3.3 - 4.9 mmol/L [facility] Chloride 106 97 - 110 mmol/L [facility] CO2 26 22 - 32 mmol/L [facility] Anion gap 10 2 - 15 mmol/L [facility] BUN 26(H) 6 - 25 mg/dL [facility] Creatinine 0.93 0.60 - 1.10 mg/dL [facility] Glucose 113 70 - 199 mg/dL [facility] Comment: Interpretive Data Fasting glucose >/= 126 mg/dl is diagnostic for diabetes. Fasting is defined as no caloric intake for at least 8 hours. Fasting glucose between 100 mg/dl to 125 mg/dl is diagnostic of prediabetes. In a patient with classic symptoms of hyperglycemia or hyperglycemic crisis, a random glucose >/= 200 mg/dl is diagnostic for diabetes. In the absence of unequivocal hyperglycemia, results should be confirmed by repeat testing. The classification and Diagnosis of Diabetes Diabetes Care 2021; 46: S19-S40. Current interpretive data was last revised 2022. Calcium 9.3 8.5 - 10.3 mg/dL [facility] Bilirubin, total 0.3 0.1 - 1.2 mg/dL [facility] Protein, pl 7.0 6.5 - 8.5 g/dL [facility] Albumin 4.1 3.5 - 5.0 g/dL [facility] Alk phos 82 40 - 130 Units/L [facility] ALT 20 7 - 45 Units/L [facility] AST 26 10 - 45 Units/L [facility] Blood 11/22/2024 3:21 PM CDT 11/22/2024 9:45 PM CDT us Kd Cooper MD LAB BLOOD ORDERABLES Final Result MIKO GUTIERREZ [id number] [address] Department of Laboratories [place], [place] [id number] * Albumin Creatinine Ratio, Urine (11/22/2024 12:51 PM CDT) Albumin Ur <12.0 mg/L Comment: Interpretive Data No reference range established. Current interpretive data was last revised 2018. Creatinine Ur 110.6 mg/dL MIKO Comment: Interpretive Data No reference range established. Current interpretive data was last revised 2018. Albumin Creatinine Ratio, Ur <11 1 - 29 mg/g MIKO Urine 11/22/2024 12:5 1 PM CDT 11/22/2024 9:45 PM CDT us Kd Cooper MD LAB URINE ORDERABLES Final Result MIKO [id number] [address] Department [place] [address] * (ABNORMAL) Lipid panel (04/19/2024 4:00 PM CDT) Cholesterol 205(H) 30 - 199 mg/dL Comment: Interpretive Data Ages < or = 19 years Acceptable: <170 mg/dL Borderline high: 170-199 mg/dL High: >or= 200 mg/dL Ages > or = 20 years Desirable: <200 mg/dL Borderline high: 200-239 mg/dL High: >or= 240 mg/dL Literature References: 1. Expert Panel on Integrated Guidelines for Cardiovascular Health and Risk Reduction in Children and Adolescents. Pediatrics 2011;128:S213 2. NCEP Expert Panel. Circulation 2004;110:227 Current Interpretive Data was last revised on 2018. Triglycerides 133 <=149 mg/dL MIKO Comment: Interpretive Data Ages < or = 9 years Acceptable: <75 mg/dL Borderline high: 75-99 mg/dL High: >or= 100 mg/dL Ages 10 to 20 years Acceptable: <90 mg/dL Borderline high: 90-129 mg/dL High: >or= 130 mg/dL Ages > or = 20 years Desirable: <150 mg/dL Borderline high: 150-199 mg/dL High: 200-499 mg/dL Very high: >or= 499 mg/dL Literature References: 1. Expert Panel on Integrated Guidelines for Cardiovascular Health and Risk Reduction in Children and Adolescents. Pediatrics 2011;128:S213 2. NCEP Expert Panel. Circulation 2004;110:227 Current Interpretive Data was last revised on 2018. HDL 45 >=40 mg/dL MIKO GUTIERREZ Comment: Interpretive Data Ages < or = 19 years Acceptable: >45 mg/dL Borderline low: 40-45 mg/dL Low: <40 mg/dL Ages > or = 20 years Desirable: >or= 60 mg/dL Low: <40 mg/dL Literature References: 1. Expert Panel on Integrated Guidelines for Cardiovascular Health and Risk Reduction in Children and Adolescents. Pediatrics 2011;128:S213 2. NCEP Expert Panel. Circulation 2004;110:227 Current Interpretive Data was last revised on 2018. LDL, calculated 136(H) <=129 mg/dL MIKO GUTIERREZ Comment: Interpretive Data Ages < or = 19 years Acceptable: <110 mg/dL Borderline high: 110-129 mg/dL High: >or= 130 mg/dL Ages > or = 20 years Optimal: <100 mg/dL Near optimal: 100-129 mg/dL Borderline high: 130-159 mg/dL High: >160 mg/dL Calculated using the George LDL-C estimating equation. This equation was implemented on 2024. Prior to this date LDL-C was estimated using the Friedewald equation. Literature References: 1. Expert Panel on Integrated Guidelines for Cardiovascular Health and Risk Reduction in Children and Adolescents. Pediatrics 2011;128:S213 2. NCEP Expert Panel. Circulation 2004;110:227 3. George Doll et al. RAINA Cardiol. 2020 November 25;5(5):540-548. doi: [email or web address] Current Interpretive Data was last revised on 2024. Non-HDL Cholesterol 160 mg/dL MIKO GUTIERREZ Comment: Interpretive Data Ages < or = 19 years Acceptable: <120 mg/dL Borderline high: 120-144 mg/dL High: >145 mg/dL Ages > or = 20 years When triglycerides are >200 mg/dL, Non-HDL cholesterol is a secondary target of therapy with treatment goals that are 30 mg/dL greater than the LDL cholesterol target. Literature References: 1. Expert Panel on Integrated Guidelines for Cardiovascular Health and Risk Reduction in Children and Adolescents. Pediatrics 2011;128:S213 2. NCEP Expert Panel. Circulation 2004;110:227 Current Interpretive Data was last revised on 2018. Chol/HDL ratio 5 [facility] Blood 04/19/2024 4:00 PM CDT 04/19/2024 8:13 PM CDT Emmy Mederos NP LAB BLOOD ORDERABLES Final Resul t Performing Organization Address [facility] de Phone Number [facility] [id number] [place] [address] * Hepatitis C antibody (07/25/2022 12:04 PM ALARM SECURITY OR SURVEILLANCE MONITOR) Hep C Ab Nonreactive Nonreactive [facility] Comment: Interpretive Data Nonreactive: Antibodies to HCV not detected. Does NOT exclude the possibility of recent exposure to HCV. Equivocal: Equivocal for HCV antibodies. Supplemental molecular testing will be automatically performed to determine infection status in accordance with current CDC screening recommendations. Reactive: Positive for HCV antibodies. This may represent current or past HCV infection. Supplemental molecular testing will be automatically performed to determine current infection status in accordance with current CDC screening recommendations. Interpretive data was last revised on 2019. Blood 07/25/2022 12:0 4 PM ALARM SECURITY OR SURVEILLANCE MONITOR 07/25/2022 6:53 PM ALARM SECURITY OR SURVEILLANCE MONITOR Result [facility] Emmy Mederos NP LAB MICROBIOLOGY - GENERAL ORDER DIE[place] Final Result Performing Organization Address [facility] de Phone Number [facility] [id number] [place] [place] [address] * HM PAP SMEAR WITH HPV (10/30/2021) Scribed Pap Smear w/HPV Normal Result [facility] Pili Provider HEALTH MAINTENANCE Edited Result - Final * SCREENING MAMMOGRAM BILATERAL W FEDE (10/17/2021) Anatomical Region Laterality Modality Breast Bilateral Mammography Severiano Chandler MD IMG MAMMO PROCEDURES Final Re sult from Last 3 Months or Most Recently Relevant to Health Maintenance Insurance [employer]PA [facility] MEDICARE ADVANTAGE [facility] MEDIC[facility] Address: [address] [address] [place] [address] [employer]PA [facility] Care Teams [employer] Specialist Relationship Specialty Start Date End Date Kd Cooper MD [address] [address] PCP - General Family Medicine 06/13/22
--- OUTSIDE RECORDS SUMMARY | 2025-02-16 10:04 | XMS_ITS | Clinical Summary ---
Author Organization [facility] Address [address] [place] [address] Phone Care Team Providers Care Bad Credit Collector Name Role Phone Evgeny Longo MD Primary Care Provider [phone] Social History Tobacco Use Types Packs/Day Years Used Date Smoking Tobacco: Never Assessed Comments Unknown Sex and Gender Information Value Date Recorded Sex Assigned at Not on file Legal Sex Female 11:50 AM CDT Gender Identity Not on file Sexual Orientation Not on file Plan of Treatment Health Maintenance Due Date Last Done Comments DTAP/TDAP/TD VACCINES (1 - Tdap) 1979 HPV/Cotest (21-29) 1981 CERVICAL CANCER SCREENING 1990 HPV/Cotest (30-65) 1990 PAP SMEAR 1990 BREAST CANCER SCREENING 2000 COLORECTAL SCREENING 2005 Colorectal Cancer Screening 2005 FIT-DNA Q 3 years 2005 FIT/FOBT Q 1 year 2005 Flex Sig/CT Colonography Q 5 years 2005 ZOSTER VACCINE (1 of 2) 2010 INFLUENZA VACCINE (#1) 2025 RSV VACCINE (60+ or ) (1 - 1-dose 75+ series) 2035 Care Teams Bad Credit Collector Relationship Specialty Start Date End Date Evgeny Longo MD [address] [place] [address] [phone] PCP - General Family Practice 02/02/13
--- OUTSIDE RECORDS SUMMARY | 2025-02-16 10:04 | XMS_ITS | Data Portability ---
Author Organization [facility], [place] Address [address] [place] [address] Care Team Providers Care Rubber And Pounder Name Role Phone JASPER NOLASCO Primary Care Provider Assessment Encounter Date Assessment Date Assessment LastModified by Organization Details LastModified Time 10/23/2021 10/23/2021 Annual gynecological exam performed. Patient will come back in a year unless there are new symptoms. [email or web address] Not available 10/23/2021 15:56:46 Plan of Treatment Reminders Order Date Submit Date Provider Last Modified By Organization Details Last Modified Time Details Appointments None recorded. Lab None recorded. Referral None recorded. Procedures None recorded. Surgeries None recorded. Imaging None recorded. Medication Orders nystatin-t riamcinolo ne 100,000 unit/gram- 0.1 % topical ointment 2021 022 [id number] [id number] [place], [address], 11:14:18 Patient TargetsNo targets recorded. Patient InstructionsNo instructions recorded. Reason for Referral None Reported. 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 Marko gregg MD elect jamee paniagua luis girard 08/18 10:18 AM Gross Descr iptio n: The speci men is recei scott in a conta iner of forma latricia label ed Sheila Goss Simps on skin tag/m old. Per the requi sitio n the site is breas t and the speci men consi sts of multi ple bradley to pink, wrink led, and irreg ular porti ons of skin measu ring 0.3 to 0.5 cm in great est dimen ayden. The speci mens are filte red and submi tted entir erna in casse ttes 1A and 1B, M/ each. (HMR, AJC,s c1) Micro scopi c Descr iptio n: Micro scopi c exami natio n is perfo rmed. Clini naga Histo ry: Other hyper troph ic disor ders of the skin (L91. 8) Speci men List: Skin tag/m ole breas t End of t Techn ical servi linda provi ded by Ass i[facility] Path[facility] logis [facility] d/b/a [facility], [address] [place] [address] Sander Palacios MD, Labor [employer]. Case revie wed and diagn osis rende red at [facility] iatMind[facility] Patho logis [facility], d/b/a [facility], [address], [place] [address] Iris boyd MD, Labor at[employer]Sh[employer]. CONFI DENTI AL Not Available [facility] ([facility]) [address], [place], [address], 08/18/2020 11:20:16 10/24/19 22 10/23/2021 IMAGE GUIDE D PAP AND HPV REGAR DLESS image guided Pap, HPV regardless of Pap result SEE RESULT S BELOW CASE REPOR T: Cytol ogy Gynec ologi naga Repor t Case: [id number] Autho max leal Provi ernesto: Yudelka castillo , Matias Angulo cted: 10/23 1625 TECHNICAL DESIGNER Order ing Locat ion: [place] Patho logy Recei scott: 10/24 0000 First Scree n: Lennie Canseco ret, CT Speci men: Scree martha Pap - Image d, Cervi x STATE MENT OF ADEQU ACY: Satis facto ry for evalu ation Trans forma tion zone compo nent canno t be defin itive ly ident ified due to the prese nce of atrop hy or other hormo nal edwards es Parti ally obscu ring infla mmati on prese nt. FINAL DIAGN OSIS: Negat trenton for Intra epith elial Lesio n or Bonita sullivan (NIL) . Atrop hic cell swapna rn. Shift in ga sugge stive of bacte rial vagin osis. Elect jamee paniagua luis d by Lennie Canseco ret, CT on 022 at 12:28 PM ----- ----- ----- ----- ----- ----- ----- ----- ----- ----- ----- ----- ----- ----- ----- ----- ----- ---- HPV RESUL TS: HPV mRNA E6/E7 : No HPV mRNA Detec ludwin NOTE: This high risk HPV mRNA assay detec ts fourt een high- risk HPV types (16, 18, 31, 33, 35, 39, 45, 51, 52, 56, 58, 59, 66, 68) witho ut diffe renti ation . COMME NT: Note: This speci men was revie wed by a Cytot echno logis t and/o r Patho logis t (as indic ated in this repor t) after evalu ation using the Thinp rep Imagi ng Syste m. CLINI NAGA INFOR MATIO N: Menst rual Statu s: LMP (if appli cable ): Clini naga Histo ry/Pr eviou s Pap: Type of Neopl hillary (if appli cable ): Signi fican t Clini naga Findi ngs: Other Histo ry: Hormo north (if appli cable ): PAP EDUCA DAYA L NOTE: The Pap Test is a scree martha test with an inher ent false negat trenton rate. Liqui d-bas ed sampl ing may decre ase, but will not elimi lisa, false negat trenton resul ts. A negat trenton resul t does not precl ude the prese nce and/o r devel opmen t of disea se, since the prese nce of abnor mal cells in the sampl e depen ds on the locat ion of the lesio n and sampl ing techn ique. Aislinn nued regul ar scree martha is the best metho d of cance r preve ntion . If repor ludwin cytol ogic findi ng do not corre late with physi naga and/o r histo rical findi ngs, furth er inves tigat ion is recom courtney d, as clini melisa damian nted. Not Available [facility] (Lab) [address], [place], [address], 10/30/2021 13:30:38 11/14/19 22 11/13/2021 SURGI NAGA PATHO LOGY surgical pathology CANCEL MERY collazo Not Available [facility] (Lab) [address], [place], [address], 11/14/2021 08:05:47 11/14/19 22 11/13/2021 SURGI NAGA PATHO LOGY surgical pathology SEE RESULT S BELOW CASE REPOR T: Surgi naga Patho logy Repor t Case: [id number] Autho max leal Provi ernesto: Nathan Rodriguez Colle cted: 11/13 1704 TECHNICAL DESIGNER Order ing Locat ion: [place] Patho logy Recei scott: 11/14 0346 Patho logis t: Ariel Raymond MD Speci mens: A) - Labia Major a, Right , right upper labia major a B) - Axill a, Left, skin tag remov al left axill a FINAL DIAGN OSIS: A. Vulva , right upper labia major a, biops y: -Epid ermal ulcer ation with liche noid chron ic infla mmati on, see comme nt. B. Skin tag, left axill a, remov al: -Skin tags. Elect jamee smith d by Ariel Raymond MD on 2021 at 2:48 PM ----- ----- ----- ----- ----- ----- ----- ----- ----- ----- ----- ----- ----- ----- ----- ----- ----- ---- COMME NT: Histo logic secti ons show epide rmal ulcer ation with spong iosis , derma l liche noid infla mmati on and focal vacuo lar degen erati on. GMS stain is negat trenton for funga l organ isms. There is no evide nce of dyspl hillary or malig nate (supp orted by patch y p16 and p53 immun ohist ochem ical stain ing). These nonsp ecifi c histo logic findi ngs are sugge stive of an infec tious or traum atic proce ss, howev er, an evolv ing liche noid derma titis (such as liche n planu s or liche n scler osus) canno t be entir erna exclu ded. Clini naga corre latio n is hanna girard. This case has been revie wed by intra depar tment al consu ltati on, with agree ment. CLINI NAGA INFOR MATIO N: not provi ded MICRO SCOPI C DESCR IPTIO N: A micro scopi c exami natio n was perfo rmed. This test was devel oped and its perfo rmanc e gloria cteri stics deter mined by [facility]orm[facility]. It has not been clear ed or appro scott by the U. S. Food and Drug Admin istra tion. The FDA has deter mined that such clear ance or appro tigist is not neces jena. This test may be used for clini naga purpo se. It shoul d not be regar ded as inves tigat ional or for resea rch. This labor atory is certi fied under the Clini naga Labor atory Impro vemen t Amend ments of 1987 (CLIA ) as quali fied to perfo rm high compl exity clini naga labor atory testi ng. In cases which have decal cifie d tissu es, the resul ts shoul d be inter prete d with cauti on given the possi bilit y of false negat chantel. The posit trenton contr ols demon strat e appro priat e posit trenton stain ing. The known tissu e negat trenton contr ols are negat trenton. The non-i mmune serum contr ol was non-r eacti ve. GROSS DESCR IPTIO N: A. Labia Major a, Right . The speci men is label ed with the patie nt's name, jose winchesteri cs and vulv ar BX. Recei scott in forma latricia is a 0.3 cm piece of white -bradley tissu e. The entir e speci men is submi tted in one casse tte. Gross ed by Miguel rodriguez B. Axill a, Left. The speci men is label ed with the patie nt's name, demog raphi cs and skin tag L axill a. Recei scott in forma latricia are 9 piece s of white -bradley tissu e aggre gatin g 2.0 x 2.0 x 0.2 cm. The entir e speci men is submi tted in one casse tte. Gross ed by Miguel rodriguez Not Available [facility] (Lab) [address], [place], [address], 11/15/2021 15:51:15 Result Notes None recorded. Procedures Surgical History Date Name Laterality Status Provider Name and Address Organization Details Recorded Time 2 Vulvar Biopsy completed Suzanne Arredondo [facility] [address], [place], [address], [facility] 11/23/2021 17:23:42 2 Skin Tag Removal completed Suzanne Arredondo [facility] [address], [place], [address], [facility] 11/23/2021 17:23:21 2 Date of Last Pap Smear completed [facility] 11/13/2021 13:15:39 2 Date of Last Mammogram completed [facility] 10/23/2021 15:59:37 1 biopsy of skin completed [facility] 10/23/2021 14:09:58 1 Skin Tag Removal completed Suzanne Arredondo [facility] [address], [place], [address], [facility] 08/10/2020 16:04:19 Imaging Results None recorded. Procedure Notes None recorded. Medical Equipment None Reported. Allergies No known drug allergies Medications Name Sig Start Date Stop Date Status Note LastModified by Organization Details LastModified Time promethazin e-DM 6.25 mg-15 mg/5 mL oral syrup 07/06 completed Not Available Not Available Not Available paroxetine 10 mg tablet Take 1 tablet every day by oral route. 10/23 completed Not Available Not Available Not Available ibuprofen 800 mg tablet TAKE 1 TABLET BY MOUTH THREE TIMES DAILY active Not Available Not Available No t Available nystatin 100,000 unit/gram topical ointment APPLY TWICE DAILY X4 WEEKS, ONCE DAILY X4 WEEKS, THEN 3X/WEEK X4 WEEKS UNTIL NEXT APPT active Not Available Not Available No t Available prednisone 20 mg tablet 03/29 /2022 completed Not Available Not Available Not Available spironolact one 100 mg tablet TAKE 1 TABLET BY MOUTH EVERY DAY 10/23 completed Not Available Not Available Not Available penicillin V potassium 500 mg tablet TAKE 1 TABLET BY MOUTH FOUR TIMES A DAY UNTIL FINISHED 07/06 completed Not Available Not Available Not Available metronidazo le 500 mg tablet TAKE 1 TABLET BY MOUTH TWICE A DAY WITH MEALS FOR 7 DAYS 02/25 completed Not Available Not Available Not Available amlodipine 5 mg tablet TAKE 1 TABLET (5 MG TOTAL) BY MOUTH DAILY. active Not Available Not Available No t Available omeprazole 40 mg capsule,del ayed release TAKE 1 CAPSULE BY MOUTH EVERY DAY active Not Available Not Available No t Available tramadol 50 mg tablet TAKE 1 TABLET BY MOUTH TWICE A DAY 07/06 completed Not Available Not Available Not Available bupropion HCl SR 100 mg tablet,12 hr sustained-r elease TAKE 1 TABLET BY MOUTH TWICE DAILY 10/23 completed Not Available Not Available Not Available nystatin-tr iamcinolone 100,000 unit/gram-0 .1 % topical ointment Apply by topical route for 84 days. 02/25 completed Not Available Not Available Not Available lorazepam 0.5 mg tablet TAKE 1 TABLET BY MOUTH TWICE DAILY NEEDED. MUST LAST 30 DAYS active Not Available Not Available No t Available benzonatate 100 mg capsule TAKE 1 CAPSULE BY MOUTH THREE TIMES A DAY NEEDED FOR COUGH 02/25 completed Not Available Not Available Not Available paroxetine 20 mg tablet TAKE 1 TABLET BY MOUTH EVERY DAY IN THE MORNING 10/23 completed Not Available Not Available Not Available triamcinolo ne acetonide 0.1 % topical ointment APPLY TWICE DAILY X 4 WEEKS, THEN ONCE A DAY X 4 WEEKS, THEN 3 X/WEEK X 4 WEEKS UNTIL NEXT APPT active Not Available Not Available No t Available polymyxin B sulfate 10,000 unit-trimet hoprim 1 mg/mL eye drops INSTILL 1 DROP INTO BOTH EYES 4 TIMES DAILY. MAY USE EVERY 4 HOURS WHILE AWAKE 07/06 completed Not Available Not Available Not Available hydrochloro thiazide 25 mg tablet TAKE 1 TABLET BY MOUTH EVERY DAY 07/06 completed Not Available Not Available Not Available levofloxaci n 500 mg tablet 07/06 completed Not Available Not Available Not Available methylpredn isolone 4 mg tablets in a dose pack PLEASE SEE ATTACHED FOR DETAILED DIRECTION S 02/25 completed Not Available Not Available Not Available paroxetine 40 mg tablet TAKE 1 TABLET BY MOUTH EVERY DAY IN THE MORNING active Not Available Not Available No t Available cefdinir 300 mg capsule 10/23 completed Not Available Not Available Not Available losartan 100 mg tablet TAKE 1 TABLET BY MOUTH EVERY DAY active Not Available Not Available No t Available fluticasone propionate 50 mcg/actuati on nasal spray,suspe nsion 07/06 completed Not Available Not Available Not Available amoxicillin 875 mg-potassiu m clavulanate 125 mg tablet TAKE 1 TABLET BY MOUTH EVERY 12 HOURS FOR 7 DAYS 10/23 completed Not Available Not Available Not Available aripiprazol e 10 mg tablet TAKE 1 TABLET BY MOUTH EVERY DAY AT BEDTIME active Not Available Not Available No t Available cyclobenzap rine 5 mg tablet 07/06 completed Not Available Not Available Not Available aripiprazol e 5 mg tablet TAKE 1 TABLET BY MOUTH EVERY DAY AT BEDTIME 10/23 completed Not Available Not Available Not Available bupropion HCl XL 150 mg 24 hr tablet, extended release TAKE 1 TABLET BY MOUTH EVERY DAY IN THE MORNING active Not Available Not Available No t Available duloxetine 30 mg capsule,del ayed release TAKE 1 CAPSULE BY MOUTH DAILY X2 WEEKS, THEN 2 CAPSULES DAILY 10/23 completed Not Available Not Available Not Available duloxetine 60 mg capsule,del ayed release TAKE 1 CAPSULE BY MOUTH EVERY DAY active Not Available Not Available No t Available omeprazole 10/23 completed Not Available Not Available Not Available hydrochloro thiazide 10/23 completed Not Available Not Available Not Available losartan 10/23 completed Not Available Not Available Not Available aripiprazol e 2 mg tablet TAKE 1 TABLET BY MOUTH EVERY DAY AT BEDTIME 10/23 completed Not Available Not Available Not Available lidocaine 5 % topical ointment APPLY TO AFFECTED AREA(S) BY TOPICAL ROUTE EVERY 4 HOURS NEEDED 10/23 completed Not Available Not Available Not Available Vitals Date Recorded Systolic And Diastolic Provider Name and Address Organization Details Last Updated DateTime 08/10/2020 136/80 mm[Hg] Suzanne Arredondo, ADELA- [address], [place], [address], [facility] 08/10/2020 16:02:31 Date Recorded Body height Body mass index (BMI) Body weight Provider Name and Address Organization Details Last Updated DateTime 08/10/2020 162.56 cm 32.5 kg/m2 41702.39 elvis Rueda [facility] 08/10/2020 11:30:57 Date Recorded Systolic And Diastolic Provider Name and Address Organization Details Last Updated DateTime 10/23/2021 132/84 mm[Hg] Suzanne Arredondo, [facility] [address], [place], [address], [facility] 10/23/2021 16:14:32 Date Recorded Body height Body mass index (BMI) Body weight Provider Name and Address Organization Details Last Updated DateTime 10/23/2021 158.75 cm 39.9 kg/m2 142449.79 g Mayuri Walker [facility] 10/23/2021 15:58:16 Date Recorded Systolic And Diastolic Provider Name and Address Organization Details Last Updated DateTime 11/13/2021 134/78 mm[Hg] Suzanne Arredondo [facility] [address], [place], [address], [facility] 11/23/2021 17:22:18 Date Recorded Body height Body mass index (BMI) Body weight Provider Name and Address Organization Details Last Updated DateTime 11/13/2021 158.75 cm 40.1 kg/m2 497833.66 g Mayuri Walker [facility] 11/13/2021 13:14:41 Date Recorded Systolic And Diastolic Provider Name and Address Organization Details Last Updated DateTime 12/03/2021 122/78 mm[Hg] Suzanne Arredondo [facility] [address], [place], [address], [facility] 12/03/2021 12:03:14 Date Recorded Body height Body mass index (BMI) Body weight Provider Name and Address Organization Details Last Updated DateTime 12/03/2021 158.75 cm 40.1 kg/m2 523391.66 g Mayuri [facility] 12/03/2021 11:30:33 Date Recorded Body height Body mass index (BMI) Body weight Systolic And Diastolic Provider Name and Address Organization Details Last Updated DateTime 02/25/2022 158.75 cm 38 kg/m2 39575.71 g 114/78 mm[Hg] Mayuri [facility] 02/25/2022 11:13:56 Social History Question Answer Notes LastModified by [employer] ion Details LastModified Time Tobacco Smoking Status Never Smoker [facility] 07/06/2020 12:05:54 Are You Blind Or Do You Have Difficulty Seeing? No Information not available 10/23/2021 What Is Your Level Of Caffeine Consumption? Moderate Information not available 08/10/2020 Are You Deaf Or Do You Have Serious Difficulty Hearing? No Information not available 10/23/2021 How Many Days Of Moderate To Strenuous Exercise, Like A Brisk Walk, Did You Do In The Last 7 Days? 1 Information not available 08/10/2020 On Those Days That You Engage In Moderate To Strenuous Exercise, How Many Minutes, On Average, Do You Exercise? 0 Information not available 08/10/2020 Has Tobacco Cessation Counseling Been Provided? No Information not available 08/10/2020 Do You Have Difficulty Walking Or Climbing Stairs? No Information not available 10/23/2021 Sex: Unknown Functional Status Question Answer Note LastModified by [employer] ion Details LastModified Time Do you use any illicit or recreational drugs? No Information not available 08/10/2020 Do you or have you ever used any other forms of tobacco or nicotine? No Information not available 08/10/2020 What is your level of alcohol consumption? None Information not available 08/10/2020 Are you able to walk? YESWOREST Information not available 10/23/2021 Are you able to care for yourself? Yes Information n ot available 10/23/2021 Do you have difficulty dressing or bathing? No Information not available 10/23/2021 What is your exercise level? Occasional Information not available 08/10/2020 Mental Status None recorded. Family History Relationship Description Onset Age of this Age Resolved Age Notes LastModified by Organization Details LastModified Time Sister Malignant tumor of cervix Not available 2019 12:03:03 Sister Heart disease Not available 2019 12:03:10 Sister Hypertensive disorder Not available 2019 12:04:48 Brother Hypercholest erolemia Not available 2019 12:03:18 Brother Hypertensive disorder Not available 2019 12:04:21 Brother Carcinoma of urinary bladder, superficial Not available 06/27 12:05:34 Brother Carcinoma of prostate Not available 2019 12:05:52 Father Hypertensive disorder Not available 2019 12:04:35 Father Kidney disease Not available 2019 12:05:17 Mother Hypertensive disorder Not available 2019 12:04:37 Maternal Grandfather Hypertensive disorder Not available 2019 12:04:41 Maternal Grandmother Hypertensive disorder Not available 2019 12:04:44 Maternal Aunt Hypertensive disorder Not available 2019 12:04:51 Maternal Uncle Hypertensive disorder Not available 2019 12:04:55 Medical History No medical history recorded. Gynecological History Statement/Question Response If Post Menopausal, Age at Menopause Abnormal Pap Y Date of Last Mammogram 09/25/2021 Sexually Active? Y STIs/STDs Y Age of first menstrual cycle 12 Date of Last Pap Smear 10/23/2021 Sexual Problems? Y Current Control Method None LMP Unknown Obstetrics History GPAL:G 2 P 0 0 0 2 Type Value Living 2 Total 2 Past Encounters Encounter ID Performer Location Encounter Start Date Encounter Closed Date Diagnosis/Indication Diagnosis SNOMED-CT Code Diagnosis ICD10 Code Diagnosis Note [id number] Suzanne Arredondo [facility] [address] [address] 07/06/2020 11:52:09 07/06/2020 12:30:37 Gynecologic examination 28465595 Z01.419 Take Calcium with Vitamin D 12-1500mg daily. Do monthly self breast exams. It is advised to get annual flu shot in the fall and she could obtain at [facility] clinic. If you haven't received the Tdap vaccine in the last 10 years you should obtain one as well. Have mammogram yearly, bone density every 2-3 years and colonoscop y every 5-10 years depending on findings and history. Engage in daily exercise of low impact aerobic exercise 45-60 minutes 4-5 times weekly. Avoid tobacco and illicit drugs as well as using moderation with alcohol intake less than 1-2 8 oz beverages daily. This lifestyle behavior pattern will lead to less health conditions and longer life span. If BMI greater than 25 weight watchers or dietary consult advised. Questions have been answered. Patient appears to understand instructio ns, but if you have any further questions call or respond to this email Monogamous relationsh ip Pap/hpv updated Normal pap hx per pt Mammo ordered Colonoscop y UTD 2019 [facility] managed See's PCP for HTN. Just getting ready to start a new medication today. Has skin tags along bra line wants removed. WIll schedule for this appt. [id number] ADELA [facility] [address] [address] 10/23/2021 15:43:58 10/23/2021 16:41:38 Gynecologic examination 41284621 Z01.419 Take Calcium with Vitamin D 12-1500mg daily. Do monthly self breast exams. It is advised to get annual flu shot in the fall and she could obtain at [facility] clinic. If you haven't received the Tdap vaccine in the last 10 years you should obtain one as well. Have mammogram yearly, bone density every 2-3 years and colonoscop y every 5-10 years depending on findings and history. Engage in daily exercise of low impact aerobic exercise 45-60 minutes 4-5 times weekly. Avoid tobacco and illicit drugs as well as using moderation with alcohol intake less than 1-2 8 oz beverages daily. This lifestyle behavior pattern will lead to less health conditions and longer life span. If BMI greater than 25 weight watchers or dietary consult advised. Questions have been answered. Patient appears to understand instructio ns, but if you have any further questions call or respond to this email Monogamous relationsh ipDeclined std screenGene tic screen discussion discussedP ap/hpv updated Normal pap hx per pt Mammo UTD PCP Colonoscop y UTD 2019 [facility] managed Has skin tags along bra line wants removed. WIll schedule for this appt. Skin tag [id number] L91.8 Return tomorrow skin tag & vulvar biopsy update [id number] Suzanne Arredondo [facility] [address],[place] [address] 08/10/2020 11:15:03 08/10/2020 16:06:41 Multiple skin tags [id number] L91.8 We agreed to return to office for removal of multiple skin tags under left arm pit witin1-2wk s; in addition will have f/u for removal of today's skin tags at that visit as well. Post=proce dure instructio n reviewed with understand ing verbalized . No further questions. 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 We agreed on a regimen of mycolog & VCG's then f/u x 3mosGave reading material to additional home review. Time spent in visit is a total of 15 mins with at least 50% of visit consisting of counseling and review of plan of care. [id number] Suzanne Arrednodo [facility] [address] [address] 02/25/2022 10:43:42 02/25/2022 11:30:08 Vaginal irritation [id number] N89.8 Here today for medication &vulva check.Exam is wnlIssues have resolved.A dvised to continue VCG's & use ointment prn.All questions answered & f/u x 1yr or prn Time spent in visit is a total of 15 mins with at least 50% of visit consisting of counseling and review of plan of care. Health Concerns Section Related Observation LastModified by Organization Detai ls LastModified Time None Recorded Concern Status LastModified by Organization Details LastModified Time None Recorded Advance Directives Directive None Recorded Payers Insurance Date Sequence Insurance Name Policy Number Policy Serna Covered Member ID Serna Member ID Guarantor Name 01/02/2022 1 [employer] Sheila Reinoso [id number] Sheila Reinoso 01/02/2022 2 [place] Sheila Reinoso [id number] Sheila Reinoso 11/02/2021 1 *SELF PAY* Ayanna Reinoso 02/25/2022 1 [facility] - DOS ON OR AFTER 21 (MEDICAID REPLACEMENT - HMO) Sheila Reinoso [id number] Sheila Reinoso Notes Date Note Type Note Provider Name and Address Organization Details Recorded Time 08/10/2020 text/html Here for removal of multiple skin tags under both arm pits & under left breast. Suzanne Arredondo, [facility]- [address], [place], [address], [facility] 08/10/2020 16:05:54 10/23/2021 text/html Annual Auto Accessories Installer Post-MenopausalRe ported bypatient.Menopau patrica Symptoms:no menopausal symptoms; normal vaginal lubrication Vaginal Bleeding:history of menopause having occurred; no history of post menopausal bleeding Urinary Symptoms:no hematuria; no incontinence; no nocturia; no urinary frequency Vulva:no genital lesion; no vulvar atrophy Vagina:normal vaginal discharge; no vaginal atrophy Breast:no breast lump; no nipple discharge; no breast pain Sexual Complaints:no sexual complaints Psychological Symptoms:no depression; no anxiety Preventive Measures:encourag e regular mammograms starting age 40; encourage self breast examination; encourage regular exercise; encourage no tobacco use; mammogram performed within the past year; history of recent colonoscopy Suzanne Arredondo [facility] [address], [place], [address], [facility] 10/23/2021 16:34:59 11/13/2021 text/html Here today for skin tag removal & vulvar bx Suzanne Arredondo [facility] [address], [place], [address], [facility] 11/23/2021 17:24:41 12/03/2021 text/html Here today for review of path results & update in plan of care. Suzanne Arredondo [facility] [address], [place], [address], [facility] 12/03/2021 12:07:51 02/25/2022 text/html Here today for vulva check. Suzanne Arredondo [facility] [address], [place], [address], [facility] 02/25/2022 11:27:45 OBGyn Episode Ob Episode Information Episode Created Date Number of Fetuses Patient Bloodtype Patient rh Status Prepregnancy Weight lbs Domestic Partner Domestic Partner Phone Father Name Advice Clerk Status 07/06/20 20 1 CLOSED Fetus Data First Name Last Name Admitted to NICU Weight (g) Sex Living Outcome Pediatric Complications Fetus ID Race Codes Race Delivery Type 6549 Vaginal Delivery Ranjith Calculation Initial Ranjith Date Initial Exam Date Initial Exam Provider Initial Ultrasound Date Last Menstrual Period Date Ultra Sound Weeks Gestation 0 Eighteen To Twenty Week Ranjith Update Ultra Sound Date Fundal Height At Umbil Quickening Date Ultra Sound Latest Weeks Gestation Final Ranjith Confirmed By Final Ranjith Confirmed Date Final Ranjith Date Ultra Sound Latest Days Gestation 0 0 Menstrual History Last Menstrual Date Menses Monthly On Bcp Conception Prior Menses Frequency Hcg Plus Date Menarche Onset Age Delivery Information Delivery Date Delivery Type Labor Anesthesia Weeks Gestation Incision Type Labor Labor Length Hrs Delivered By Post Complications Tubal Sterilization Discharge Date Comments 8 Discharge Information Feeding Method Contraceptive Method Maternal HG B and HCT Levels Ob Episode Information Episode Created Date Number of Fetuses Patient Bloodtype Patient rh Status Prepregnancy Weight lbs Domestic Partner Domestic Partner Phone Father Name Advice Clerk Status 07/06/20 20 1 CLOSED Fetus Data First Name Last Name Admitted to NICU Weight (g) Sex Living Outcome Pediatric Complications Fetus ID Race Codes Race Delivery Type 6550 Vaginal Delivery Ranjith Calculation Initial Ranjith Date Initial Exam Date Initial Exam Provider Initial Ultrasound Date Last Menstrual Period Date Ultra Sound Weeks Gestation 0 Eighteen To Twenty Week Ranjith Update Ultra Sound Date Fundal Height At Umbil Quickening Date Ultra Sound Latest Weeks Gestation Final Ranjith Confirmed By Final Ranjith Confirmed Date Final Ranjith Date Ultra Sound Latest Days Gestation 0 0 Menstrual History Last Menstrual Date Menses Monthly On Bcp Conception Prior Menses Frequency Hcg Plus Date Menarche Onset Age Delivery Information Delivery Date Delivery Type Labor Anesthesia Weeks Gestation Incision Type Labor Labor Length Hrs Delivered By Post Complications Tubal Sterilization Discharge Date Comments 4 Discharge Information Feeding Method Contraceptive Method Maternal HG B and HCT Levels
--- OUTSIDE RECORDS SUMMARY | 2025-02-16 10:04 | XMS_ITS | Clinical Summary ---
Author Organization [facility] Address [address] [place] [address] Care Team Providers Care Room Service Bellhop Name Role Phone Kd Cooper MD Primary Care Provider [phone] Allergies Active Allergy Reactions Criticality Noted Date [...] Bee sting 07/09/2022 12/02/2024 Chronic depression 07/09/2022 Establishing care with penny mora, encounter for 06/15/2022 12/02/2024 Assessment & Plan (06/15/2022 12:54 PM PROJECT FACILITATOR): A(n) initial visit to establish care has [...] consultation is desired. Plan to send to [facility] Mood is changed a bit, will increase bupropion to 200 mg twice daily Will plan to do former mental status exam at follow-up in 3 weeks Labs as ordered Dizziness and giddiness 01/15/202202/2025 Assessment & Plan (01/15/2022 10:44 AM CDT): Hearing test - Anshul Suspect Pulmonary contribution to shortness of breath and resulting presyncopal complaints. Referral placed to Pulmonary [id number] condition 09/27/202102/2025 Muscle weakness 01/23/2021 12/02/2024 History of COVID-19 01/23/2021 12/03/19 25 Daytime somnolence 11/08/2020 Rheumatoid arthritis 10/19/2020 022 Shortness of breath 10/19/2020 12/03/19 25 Chronic cough 10/19/2020 08/29/2021 Anxiety 10/19/2020 12/02/2024 Acute respiratory disease du e to 2019 novel coronavirus 10/16/2020 09/27/2021 Acute respiratory failure wi th hypoxia (CMS/HCC) 10/16/2020 09/27/2021 Bacteremia due to coagulase- negative Staphylococcus 10/16/2020 12/02/2024 Pneumonia due to 2019-nCoV 10/16/2020 0 12/02/2024 Hyperglycemia 01/12/2020 12/02/2024 Encounters Date Type Department Care Team Description 01/17/2025 Telephone [facility] Primary Care at [address] [phone] Kd Cooper MD Symptom Based Call 12/30/2024 1:15 PM CDT Office Visit [facility] Primary Care at [address] [address] Kd Cooper MD Alopecia (capitis) totalis (Primary Dx) 12/22/2024 ACO Clinical Pharmacist [address] [address] Hailey Lan [facility] 12/22/2024 Orders Only [facility] Primary Care at [address] [address] Kd Cooper MD Cervical disc disease 12/14/2024 Orders Only [facility] Primary Care at [address] [phone] Kd Cooper MD 12/14/2024 Telephone [facility] Care at [address] [address] Kd Cooper MD Symptom Based Call 12/08/2024 ACO Clinical Pharmacist [address] [address] Hailey Lan [facility] 12/03/2024 Telephone [facility] Care at [address] [phone] Kd Cooper MD Med Management 12/03/2024 ACO Clinical Pharmacist [address] [address] Hailey Lan [facility] 12/02/2024 8:00 AM CDT Office Visit [facility] Primary Care at [address] [address] Brionna Figueroa NP Seborrheic dermatitis of scalp (Primary Dx); Left upper arm pain 11/23/2024 Results Follow-Up [facility] Primary Care at [address] [address] Kd Cooper MD Hepatitis B core antibody, total Blood, Hepatitis B Surface Antigen Blood, Hepatitis B surface antibody (immune status) Blood, Additional followed-up results: 7 11/22/2024 3:30 PM CDT Lab [facility] Outpatient Lab at [address] [phone] Hyperglycemia (Primary Dx); Hyperlipidemia 11/22/2024 3:21 PM CDT - 11/22/2024 11:59 PM CDT Hospital Encounter [address] [address] Screening for hepatitis B virus declined; Hypertension associated with diabetes (HCC) Discharge Disposition: Discharge to home or self care 11/22/2024 3:15 PM CDT Office Visit [facility] Primary Care at [address] [phone] Kd Cooper MD Encounter for annual wellness [...] Cervical disc disease 11/19/2024 ACO Medication Access [facility] Care Organization [address] [place] [id number] Hoa Najera, guard chief from Last 3 Months Immunizations Immunization Administration Dates Next Due Influenza, Unspecified 07/25/2022(Deferr ed: Patient Refused),07/09/2022(Deferred: Patient Refused),06/13/2022(Deferred: Patient Refused),08/29/2021(Deferred: Patient Refused),12/26/2020,07/28/2020(Deferred: Patient Refused) Surgical History Surgery Date Site/Laterality Comments BACK SURGERY BLADDER SURGERY Medical History Medical History Date Comments Hypertension Depression Anxiety GERD (gastroesophageal reflux disease) Sleep apnea Arthritis Family History Medical History Relation Name Comments Bladder Cancer Brother 1 Parkinsonism Brother 1 Prostate cancer Brother 1 Diabetes Brother 2 Cancer Father Connor Dementia Father Connor Heart disease Father Connor Hypertension Father Connor Kidney cancer Father Connor Parkinsonism Father Connor Hypertension Maternal Grandfather Hypertension Maternal Grandmother Cerebral aneurysm Mother Hypertension Mother Hypertension Paternal Grandfather Hypertension Paternal Grandmother Rheum arthritis Paternal Grandmother Hypertension Sister 1 Kidney cancer Sister 1 Hypertension Sister 2 Lung disease Sister 3 secondary to co vid-19 Alcohol abuse Sister 4 Arthritis Sister 4 Relation Name Status Comments Brother 1 Brother 2 Alive Father Connor Maternal Grandfather Maternal Grandmother Mother Paternal Grandfather Paternal Grandmother Sister 1 Alive Sister 2 Alive Sister 3 Alive Sister 4 Alive Social History Tobacco Use Types Packs/Day Years [...] on file Legal Sex Female 5:21 AM PROJECT FACILITATOR Gender Identity Not on file Sexual Orientation Not on file Obstetrics History Last Filed Vital Signs Vital Sign Reading [...] 12/30/2024 1:14 PM CDT Plan of Treatment Health Maintenance Due Date Last Done Comments Colon Cancer Screening-Colonoscopy 1960 Dilated Eye Exam 1960 Breast Cancer Screening-Mammogram 10/17/2022 10/17/2021 Cervical Cancer Screening 10/30/2022 10/30/2021 Covid-19 Vaccine ( - season) 2024 04/11/2021 Foot Exam 04/19/2025 04/19/2024 Lipid Panel 04/19/2025 04/19/2024, 10/26, 12/31/2022, Additional history exists Hemoglobin A1C 05/24/2025 11/22/2024, 03/29, 11/13/2023, Additional history exists Pneumococcal vaccine <65 (1 of 2 - PCV) 11/07/2025 Postponed from 1979 (Patient declined, but will receive in the future) Albumin Creatinine Ratio, Urine 11/22/2025 11/22/2024, 11/13/2023 Regular Well Visit/Exam 18-64 11/22/2025 11/22/2024 Zoster Vaccine (1 of 2) 11/22/2025 Post poned from 2010 (Insurance / Financial) eGFR 11/22/2025 11/22/2024, 03/29, 11/13/2023, Additional history exists Depression Screening 12/30/2025 12/30/2024, 12/30/2024, 12/02/2024, Additional history exists DTaP/Tdap/Td Vaccine (1 - Tdap) 07/27/2026 Postponed from 1971 (Insurance / Financial) Influenza Vaccine Discontinued 12/26/2020 Hepatitis C Screening Completed 07/25/2022 Hepatitis B Screening Completed 11/22/2024 Procedures Procedure Name Priority Date/Time Associated Diagnosis [...] HEPATITIS C ANTIBODY Routine 07/25/2022 12:04 PM PROJECT FACILITATOR Encounter for hepatitis C screening test for [...] 3:21 PM CDT 11/22/2024 9:47 PM CDT Kd Cooper MD LAB BLOOD ORDERABLES Final Result [facility] [address] Department of Laboratories [place], [place] [id number] * Differential, auto (11/22/2024 3:21 PM CDT) Neutrophil abs 4.41 1.50 - 6.50 K/cumm Imm gran abs 0.01 0.00 - 0.10 K/cumm [facility] Lymphocyte abs 2.87 0.80 - 3.30 K/cumm [facility] Monocyte abs 0.50 0.20 - 0.80 K/cumm [facility] Eosinophil abs 0.19 0.00 - 0.50 K/cumm [facility] Basophil abs 0.06 0.00 - 0.10 K/cumm [facility] Neutrophil pct 54.9 % MIKO Comment: Interpretive [...] revised on 2017. Lymphocyte pct 35.7 % [facility] Comment: Interpretive Data Percent [...] revised on 2017. Eosinophil pct 2.4 % [facility] Comment: Interpretive Data Percent cell count reference ranges are not reported, since discordance with absolute values may lead to misinterpretation of CBC data. Current Interpretive Data was last revised on 2017. Basophil pct 0.7 % [facility] Comment: Interpretive Data Percent cell count reference ranges are not reported, since discordance with absolute values may lead to misinterpretation of CBC data. Current Interpretive Data was last revised on 2017. Blood 11/22/2024 3:21 PM CDT 11/22/2024 9:45 PM CDT Kd Cooper MD LAB BLOOD ORDERABLES Final Result Performing Organization Address [facility] Co de Phone Number [facility] [address] [facility] [place] [address] * Thyroid Function Catron (11/22/2024 3:21 PM CDT) TSH 0.85 0.30 - 4.20 mcIUnit/mL Blood 11/22/2024 3:21 PM CDT 11/22/2024 9:45 PM CDT Kd Cooper MD LAB BLOOD ORDERABLES Final Result Performing Organization Address [facility] Co de Phone Number [facility] [address] [place] [address] * (ABNORMAL) CBC with auto differential (11/22/2024 3:21 PM CDT) WBC 8.04 3.80 - 9.90 K/cumm Hgb 12.3 11.9 - 15.5 g/dL [facility] Hct 39.3 35.6 - 45.5 % [facility] Plt 274 150 - 400 K/cumm [facility] MPV 9.2 9.1 - 12.3 fL [facility] RBC 4.11 3.90 - 5.20 M/cumm [facility] MCV 95.6 81.3 - 96.4 fL [facility] MCH 29.9 27.1 - 33.3 pg [facility] MCHC 31.3(L) 32.3 - 35.7 g/dL [facility] RDW CV 13.0 11.1 - 14.9 % [facility] RDW SD 45.6 35.7 - 48.1 fL [facility] NRBC abs 0.00 0.00 - 0.01 K/cumm [facility] Blood 11/22/2024 3:21 PM CDT 11/22/2024 9:45 PM CDT Kd Cooper MD LAB BLOOD ORDERABLES Final Result Performing Organization Address [facility] Co de Phone Number [facility] [address] [place] [address] * Hepatitis B core antibody, total Blood (11/22/2024 3:21 PM CDT) Pathologist [facility] Hep B core IgG/IgM Nonreactive Nonreactive Comment:Testing performed by : [facility], [address] [facility] [place]., [address] Blood 11/22/2024 3:21 PM CDT 11/23/2024 10:30 AM CDT Kd Cooper MD LAB MICROBIOLOGY - GENERAL ORDERABLES Final Result [facility] [address] [place] [address] * Hepatitis B surface antibody (immune status) [...] GENERAL ORDERABLES Final Result Performing Organization Address [facility] Co de Phone Number [facility] GUTIERRE[facility] [address] [place] [address] * Hepatitis B Surface Antigen Blood (11/22/2024 3:21 PM CDT) Pathologist [facility] HepBsAg Nonreactive Nonreactive Blood 11/22/2024 3:21 PM CDT 11/22/2024 9:45 PM CDT Kd Cooper MD LAB MICROBIOLOGY - GENERAL ORDERABLES Final Result Performing Organization Address [facility] Co de Phone Number [facility]KO [phone] [place] [address] * (ABNORMAL) Hemoglobin A1c (11/22/2024 3:21 PM CDT) Pathologist [facility] Hgb A1C 6.3(H) 4.0 - 5.6 % Estimated Average Glucose 134 mg/dL [facility] GUTIERRE[facility] Comment: The ADA recommends reporting an estimated Average Glucose (eAG) with all Hemoglobin A1c results using the equation derived from a study of 507 normal and diabetic adults. Minority populations were underrepresented and children were not included. (Diabetes Care 31:2313-2208, 2008). The eAG is not equivalent to a fasting glucose. Blood 11/22/2024 3:21 PM CDT 11/22/2024 9:45 PM CDT Kd Cooper MD LAB BLOOD ORDERABLES Final Result Performing Organization Address City/State/ZIP Co fl Phone Number [facility] [address] [place] [address] * (ABNORMAL) Comprehensive metabolic panel (11/22/2024 3:21 [...] BLOOD ORDERABLES Final Result Performing Organization Address [facility] de Phone Number MIKO [address] [address] [facility] [place] [address] * Albumin Creatinine Ratio, Urine (11/22/2024 12:51 [...] 1 PM CDT 11/22/2024 9:45 PM CDT Kd Cooper MD LAB URINE ORDERABLES Final Result Performing Organization Address [facility] de Phone Number [facility] [phone] [place] [address] * (ABNORMAL) Lipid panel (04/19/2024 4:00 PM [...] revised on 2018. Triglycerides 133 <=149 mg/dL [facility] Comment: Interpretive Data Ages < or = [...] on 2018. HDL 45 >=40 mg/dL [facility] Comment: Interpretive Data Ages < [...] 2018. LDL, calculated 136(H) <=129 mg/dL [facility] Comment: Interpretive Data Ages < [...] NCEP Expert Panel. Circulation 2004;110:227 3. George Rogers al. RAINA Cardiol. 2020 November 25;5(5):540-548. doi: 10.1001/jamacardio.2020.0013 Current Interpretive Data was last revised on 2024. Non-HDL Cholesterol 160 mg/dL [facility] Comment: Interpretive Data Ages < or = [...] last revised on 2018. Chol/HDL ratio 5 [facility] Blood 04/19/2024 4:00 PM CDT 04/19/2024 8:13 PM CDT us Emmy Mederos NP LAB BLOOD ORDERABLES Final Resul t Performing Organization Address [facility] de Phone Number [facility] [phone] [place] [address] * Hepatitis C antibody (07/25/2022 12:04 PM PROJECT FACILITATOR) Hep C Ab Nonreactive Nonreactive [facility] Comment: Interpretive Data Nonreactive: Antibodies to HCV [...] on 2019. Blood 07/25/2022 12:0 4 PM PROJECT FACILITATOR 07/25/2022 6:53 PM PROJECT FACILITATOR us Emmy Mederos NP LAB MICROBIOLOGY - GENERAL ORDER DIEGO Final Result Performing Organization Address [facility] Co de Phone Number [facility] [address] [place] [address] * HM PAP SMEAR WITH HPV (10/30/2021) Scribed Pap Smear w/HPV Normal Historical Provider HEALTH MAINTENANCE Edited Result - Final * SCREENING MAMMOGRAM BILATERAL W FEDE (10/17/2021) Anatomical Region Laterality Modality Breast Bilateral Mammography Severiano Chandler MD IMG MAMMO PROCEDURES Final Re sult from Last 3 Months or Most Recently Relevant to Health Maintenance [place] [address] [facility] MEDICARE [facility] Address: [address] [address] [place] [address] [employer] Care Teams Room Service Bellhop Relationship Specialty Start Date End Date Kd Cooper MD [address] [place] [address] [address] [place] [address] PCP - General Family Medicine 06/13/22
--- OUTSIDE RECORDS SUMMARY | 2025-02-16 10:04 | XMS_ITS | Clinical Summary ---
Author Organization [facility] Address [address] [place] [address] Care Team Providers Care Product Controller Name Role Phone Unavailable Primary Care Provider Unavailabl e Social History Tobacco Use Types Packs/Day Years Used Date Smoking Tobacco: Never Assessed Comments Unknown Sex and Gender Information Value Date Recorded Sex Assigned at Not on file Legal Sex Female 8:02 PM CDT Gender Identity Not on file Sexual Orientation Not on file Plan of Treatment Health Maintenance Due Date Last Done Comments Cervical Cancer Screening Pa p Smear (Age 30 to 64) Every 3 Years 1960 Colorectal Cancer Screening Colonoscopy (10 Years) 1960 Annual Physical 1963 Hepatitis C 1978 DTaP, Tdap and Td Vaccines ( 1 - Tdap) 1979 Cervical Cancer Screening Pa p with HPV Testing (Age 30 to 64) Every 5 Years 1990 Cervical Cancer Screening with HPV 1990 Mammogram Screening 2000 Pneumococcal Vaccine: 50+ Ye ars (1 of 1 - PCV) 2010 Zoster Vaccines (1 of 2) 2010 COVID-19 Vaccine ( - 2023-2 5 season) 2024 RSV Immunization or 60+ Years (1 - 1-dose 75+ series) 2035 Meningococcal B Vaccine Aged Out No l onger eligible based on patient's age to complete this topic Meningococcal Vaccine Aged Out No raf gal eligible based on patient's age to complete this topic RSV Immunizations Under 20 Months Aged Out No longer eligible based on patient's age to complete this topic
== END 2025-02-16 10:00 | disposition home or self-care (01) ==
LOC: ANHIMG 10:01
PROVIDERS: PCP Family Medicine; Visit Provider Family Medicine
DX: Z12.31 Encounter for screening mammogram for malignant neoplasm of breast (principal)
CPT/HCPCS: 77063; 77067